=== PATIENT | female | born 1985 | race Caucasian/White ===

== ENCOUNTER 2018-03-01 09:17 | Emergency (ER) | payer BC ==
[~2018-03-01] VITALS: Ht 172.7 cm; Wt 108.0 kg
--- NOTE | 2018-03-01 09:29 | NUR ---
EKG PERFORMED WITH EDTA AND THIS RN. PT TOLERATED WITH NO COMPLICATIONS.
--- NOTE | 2018-03-01 09:40 | NUR ---
Pt presents for CP to L chest/LUQ. Pt states pain woke her at 0600 and has been constant. Feels better with pressure. Worse with deep breathing. No NVD.
[2018-03-01] MEDS ORDERED: KETOROLAC 30 MG/1 ML ONE (09:50)
[2018-03-01] MEDS ORDERED: KETOROLAC 60 MG/2 ML IM ONE (10:00)
[2018-03-01 10:17] LABS: ALBUMIN 3.6 g/dL (3.4-5.0); ANION GAP 4 mmol/L (5-15); CALCIUM 8.5 mg/dL (8.5-10.1); CHLORIDE 107 mmol/L (98-107); CREATININE 0.76 mg/dL (0.55-1.02)
[2018-03-01 11:02] VITALS: BP 128/72
== END 2018-03-01 11:04 | disposition other institution (70) ==
LOC: ED 10:57
DX: M94.0 Chondrocostal junction syndrome [Tietze] (principal); R07.9 Chest pain, unspecified
CPT/HCPCS: 36415; 71045; 80048; 82040; 85379; 93005; 96372; 99284; J1885